=== PATIENT | female | born 1990 | race Caucasian/White ===

== ENCOUNTER 2016-09-09 06:17 | Emergency (ER) | payer BC ==
[2016-09-09 06:26] VITALS: TEMP 98.4; BMI 28.3
--- NOTE | 2016-09-09 06:40 | PDOC ---
History of Present Illness - General Chief Complaint: Nausea/Vomiting Stated Complaint: NAUSEA/VOMITING Time Seen by Provider: 09/09/16 06:34 History Source: Patient Exam Limitations: No Limitations - History of Present Illness Initial Comments: 09/09/16 06:42 This is a 25-year-old female who just arrived from a vacation in [facility] with her . Patient comes to the emergency room complaining of a migraine headache. Patient is vomiting secondary to the headache. Patient said that she has vomited her medications that she normally takes for her headache and comes in for evaluation and medication. Patient denies any fevers or chills. Patient denies any change in her vision or neurological complaints. PAST MEDICAL HISTORY: Migraine headaches PAST SURGICAL HISTORY: no significant history FAMILY HISTORY: no pertinant history SOCIAL HISTORY: Pt lives with family and is employed. MEDICATIONS: reviewed ALLERGIES: As per nursing notes Review of Systems General: No fevers or chills, no weakness, no weight loss HEENT: No change in vision. No sore throat,. No ear pain, headache CardioVascular: No chest pain or shortness of breath Respiratory:No cough, or wheezing. Gastrointestinal: no nausea, vomitting, diarrhea or constipation, No rectal bleeding Genitourinary: No dysuria, hematuria, or frequency Musculoskeletal: No joint or muscle pain or swelling Neurologic: No headache, vertigo, dizziness or loss of consciousness Psychiatric: nor depression Skin: No rashes or easy bruising Endocrine: no increased thirst or abnormal weight change Allergic: no skin or latex allergy All other systems reviewed and normal Exam: General: Well-nourished well-developed individual, holding her head in moderate distress. HEENT: Throat: Normal, tonsils normal, no erythema or exudate Neck: Supple, no meningeal signs, no lymphadenopathy Eyes::Pupils equal reactive and round, extraocular motion intact Chest: Nontender to palpation Cardiac: S1-S2 normal, regular rate and rhythm, no murmurs rubs or gallops Respiratory: Lungs clear to auscultation bilateral Abdomen: Soft, nondistended, normal bowel sounds, nontender to palpation diffusely Extremities: Warm, dry, no cyanosis, clubbing, or edema Skin: No rashes Neuro: Alert and oriented x3, nonfocal exam, grossly intact, normal gait Psych: Normal mood and affect Case discussed in detail with oncoming Emergency Physician including history, physical exam and ancillary studies. Oncoming Emergency Physician has assumed care for the patient and will complete the evaluation and treatment. Patient is aware of the plan. Pt is clinically unchanged and stable. 09/09/16 06:47 Past History - Past Medical History Allergies/Adverse Reactions: Allergies Allergy/AdvReac Type Severity Reaction Status Date / Time cefaclor [From Ceclor] Allergy Intermediate Rash Unverified 06/25/12 19:45 ciprofloxacin [From Cipro] Allergy Rash Unverified 06/25/12 19:45 nitrofurantoin Allergy Unverified 06/25/12 19:45 [From Macrobid] nitrofurantoin Allergy Unverified 06/25/12 19:45 macrocrystalline [From Macrobid] nut - unspecified [nut] Allergy Verified 08/18/15 12:09 Penicillins Allergy Rash Unverified 06/25/12 19:45 soy Allergy Verified 08/18/15 12:10 Sulfa (Sulfonamide Allergy Rash Unverified 06/25/12 19:45 Antibiotics) [Sulfa(Sulfonamide Antibiotics)] RED MEAT Allergy Uncoded 08/18/15 12:10 Home Medications: Ambulatory Orders Duloxetine HCl [Cymbalta -] 120 mg PO DAILY #30 08/09/15 Iron Ag/C/B12/Ca/Suc.acid/Stom [Multigen Caplet] 1 each PO DAILY tablet Mycophenolate Mofetil [Cellcept -] 100 mg PO BID tablet 08/09/15 Prednisone 20 mg PO ASDIR #90 08/09/15 Amitriptyline HCl [Elavil -] 10 mg PO DAILY 02/11/16 Apremilast [Otezla] 30 mg PO BID 02/11/16 Cetirizine HCl [Zyrtec -] 10 mg PO BID 02/11/16 Desloratadine [Clarinex] 2.5 mg PO ASDIR 02/11/16 Dextroamphetamine/Amphetamine [Adderall 10 mg Tablet] 10 mg PO AM 02/11/16 Dextroamphetamine/Amphetamine [Adderall 5 mg Tablet] 5 mg PO HS 02/11/16 Esomeprazole Magnesium [Nexium 24Hr] 40 mg PO BID 02/11/16 Hydromorphone HCl [Dilaudid] 2 mg PO QID 02/11/16 Levocarnitine 5 tab PO Q4HWA 02/11/16 Linaclotide [Linzess] 290 mcg PO DAILY 02/11/16 Montelukast Na [Singulair -] 10 mg PO HS 02/11/16 Mupirocin Calcium [Bactroban Nasal] 1 applic NS BID 02/11/16 Pramipexole Dihydrochloride [Mirapex -] 1 mg PO HS 02/11/16 Ubidecarenone [Co Q-10] 100 mg PO DAILY 02/11/16 Vancomycin HCl in Dextrose 5 % [Vancomycin-D5w 1.5 G/250 ml] 1.5 gm IV BID 02/10 l-Norgest/E.estradiol-E.estrad [Seasonique 0.15-0.03-0.01 Tab] 1 each PO DAILY 02/11/16 Anemia: No Asthma: Yes Cancer: No Cardiac Disorders: No CVA: No COPD: No CHF: No Dementia: No Diabetes: No GI Disorders: Yes Disorders: No HTN: No Hypercholesterolemia: No Liver Disease: No Psychiatric Problems: Yes Seizures: No Thyroid Disease: No Other medical history: EDS (AUTOIMMUNE), CARNITINE DEFICIENCY, FIBROMYALGIA, MIGRAINES - Surgical History Abdominal Surgery: No Appendectomy: No Cardiac Surgery: No Cholecystectomy: No Lung Surgery: No Neurologic Surgery: No Orthopedic Surgery: No - Psycho/Social/Smoking Cessation Hx Anxiety: Yes Suicidal Ideation: No Smoking History: Unknown if ever smoked Have you smoked in the past 12 months: No Information on smoking cessation initiated: No Hx Alcohol Use: No Drug/Substance Use Hx: No Substance Use Type: None Hx Substance Use Treatment: No *Physical Exam - Vital Signs Last Vital Signs Temp Pulse Resp BP Pulse Ox 98.4 F 104 H 18 117/79 100 09/09/16 06:24 09/09/16 06:24 09/09/16 06:24 09/09/16 06:24 09/09/16 06:24 *DC/Admit/Observation/Transfer Diagnosis at time of Disposition: Migraine headache Qualifiers: Migraine type: unspecified Status migrainosus presence: without status migrainosus Intractability: not intractable Qualified Code(s): G43.909 - Migraine, unspecified, not intractable, without status migrainosus - Discharge Dispostion Condition at time of disposition: Stable
[2016-09-09] MEDS ORDERED: KETOROLAC TROMETHAMINE 30 MG/1 ML VIAL IVPUSH ONE (06:41)
[2016-09-09] MEDS ORDERED: ONDANSETRON 4 MG/2 ML VIAL IVPB ONE (06:41)
[2016-09-09] MEDS ORDERED: METOCLOPRAMIDE HCL INJECTION 10 MG/2 ML VIAL IVPUSH ONE (06:41)
[2016-09-09] MEDS ORDERED: ONDANSETRON 4 MG/2 ML VIAL ONE (06:53)
[2016-09-09] MEDS ORDERED: KETOROLAC TROMETHAMINE 30 MG/1 ML VIAL ONE (06:53)
--- NOTE | 2016-09-09 07:28 | PDOC ---
*Physical Exam - Vital Signs Last Vital Signs Temp Pulse Resp BP Pulse Ox 98.4 F 104 H 18 117/79 100 09/09/16 06:24 09/09/16 06:24 09/09/16 06:24 09/09/16 06:24 09/09/16 06:24 ED Treatment Course - Medications Given in the ED: ED Medications Discontinued Medications Generic Name Dose Route Start Last Admin Trade Name Don PRN Reason Stop Dose Admin Ketorolac Tromethamine 30 mg 09/09/16 06:41 09/09/16 06:57 Toradol Injection - IVPUSH 09/09/16 06:42 30 mg ONCE ONE Administration Metoclopramide HCl 10 mg 09/09/16 06:41 09/09/16 06:57 Reglan Injection - IVPUSH 09/09/16 06:42 10 mg ONCE ONE Administration Ondansetron HCl 8 mg 09/09/16 06:41 09/09/16 06:58 Zofran Injection IVPB 09/09/16 06:42 8 mg ONCE ONE Administration Medical Decision Making - Medical Decision Making 09/09/16 07:31 Patient received on signout from Dr. Patel. Received IV medication for migraine , IV fluids. Awaiting [facility] to further evaluate. If wnl and if patient improved, will DC home. 09/09/16 08:49 Pt reassessed. She states she is feeling much better. Will give additional liter of saline, as patient states she still feels a little dehydrated. After that, stable for DC home. *DC/Admit/Observation/Transfer Diagnosis at time of Disposition: Migraine headache Qualifiers: Migraine type: unspecified Status migrainosus presence: without status migrainosus Intractability: not intractable Qualified Code(s): G43.909 - Migraine, unspecified, not intractable, without status migrainosus - Discharge Dispostion Disposition: HOME Condition at time of disposition: Stable Admit: No - Referrals Referrals: STAFF,NOT ON [Primary Care Provider] - - Patient Instructions - Post Discharge Activity
[2016-09-09] MEDS ORDERED: SODIUM CHLORIDE 1,000 ML IV STA (08:48)
[2016-09-09 10:10] VITALS: BP 110/68; PULSE 88
== END 2016-09-09 10:05 | disposition home or self-care (01) ==
LOC: SUPCPDRO 06:17 → FER 06:17
PROC: 3E033GC Introduction of Other Therapeutic Substance into Peripheral Vein, Percutaneous Approach (ICD-10-PCS; principal; 2016-09-09)
PROC: 3E0333Z Introduction of Anti-inflammatory into Peripheral Vein, Percutaneous Approach (ICD-10-PCS; 2016-09-09)
PROC: 3E0337Z Introduction of Electrolytic and Water Balance Substance into Peripheral Vein, Percutaneous Approach (ICD-10-PCS; 2016-09-09)
DX: G43.909 Migraine, unspecified, not intractable, without status migrainosus (principal); E71.40 Disorder of carnitine metabolism, unspecified; J45.909 Unspecified asthma, uncomplicated; F99 Mental disorder, not otherwise specified; M79.7 Fibromyalgia
CPT/HCPCS: 70450-TC; 99283-25

== ENCOUNTER 2016-11-02 15:00 | Observation (INO) | payer BC ==
[2016-11-02] MEDS ORDERED: SODIUM CHLORIDE 1,000 ML IV STA ×2 (15:13→16:29)
[2016-11-02] MEDS ORDERED: ONDANSETRON 4 MG/2 ML VIAL IVPB ONE (15:14)
--- NOTE | 2016-11-02 15:14 | PDOC ---
History of Present Illness - General History Source: Patient Exam Limitations: No Limitations - History of Present Illness Initial Comments: 11/02/16 17:22 The patient is a 25 year old female with a significant past medical history of autoimmune disorders who presents to the ED with complaints of vomiting or diarrhea. The patient reports multiple episodes of vomiting and diarrhea that started last night. She reports similar symptoms in past and states she typically gets muscle spasms and migraines associated with these symptoms. Patient reports abdominal cramping that feels like she is inflamed on the inside. She states the abdominal cramping is progressively worsening and radiated to her lower back. Denies migraines. She states she ate 2 activia yogurts and took a new probiotic th she thinks could be what triggered her symptoms. Denies hematochezia or haematemesis. Denies fevers or chills. Denies chest pain or shortness of breath. Denies any other symptoms. 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 PMD: Dr. Bradley ([id number]) <Celeste Bacon - Last Filed: 11/02/16 17:22> <Vineet Powers - Last Filed: 11/14/16 07:30> - General Chief Complaint: Vomiting/Diarrhea Stated Complaint: NAUSEA, VOMITING, DIARRHEA Time Seen by Provider: 11/02/16 15:13 Past History <Celeste Bacon - Last Filed: 11/02/16 17:22> - Past Medical History Anemia: No Asthma: Yes Cancer: No Cardiac Disorders: No CVA: No COPD: No CHF: No Dementia: No Diabetes: No GI Disorders: Yes Disorders: No HTN: No Hypercholesterolemia: No Liver Disease: No Psychiatric Problems: Yes Seizures: No Thyroid Disease: No - Surgical History Abdominal Surgery: No Appendectomy: No Cardiac Surgery: No Cholecystectomy: No Lung Surgery: No Neurologic Surgery: No Orthopedic Surgery: No - Psycho/Social/Smoking Cessation Hx Anxiety: Yes Suicidal Ideation: No Smoking History: Unknown if ever smoked Have you smoked in the past 12 months: No Hx Alcohol Use: No Drug/Substance Use Hx: No Substance Use Type: None Hx Substance Use Treatment: No <Vineet Powers - Last Filed: 11/14/16 07:30> - Past Medical History Allergies/Adverse Reactions: Allergies Allergy/AdvReac Type Severity Reaction Status Date / Time cefaclor [From Ceclor] Allergy Intermediate Rash Verified 09/09/16 08:17 ciprofloxacin [From Cipro] Allergy Rash Verified 09/09/16 08:17 nitrofurantoin Allergy Verified 09/09/16 08:17 [From Macrobid] nitrofurantoin Allergy Verified 09/09/16 08:17 macrocrystalline [From Macrobid] nut - unspecified [nut] Allergy Verified 09/09/16 08:17 Penicillins Allergy Rash Verified 09/09/16 08:17 soy Allergy Verified 09/09/16 08:17 Sulfa (Sulfonamide Allergy Rash Verified 09/09/16 08:17 Antibiotics) [Sulfa(Sulfonamide Antibiotics)] RED MEAT Allergy Uncoded 08/18/15 12:10 Home Medications: Ambulatory Orders Duloxetine HCl [Cymbalta -] 60 mg PO BID #30 08/09/15 Iron Ag/C/B12/Ca/Suc.acid/Stom [Multigen Caplet] 1 each PO DAILY tablet Prednisone 10 mg PO ASDIR #90 08/09/15 Amitriptyline HCl [Elavil -] 20 mg PO HS 02/11/16 Apremilast [Otezla] 30 mg PO BID 02/11/16 Desloratadine [Clarinex] 5 mg PO TID 02/11/16 Dextroamphetamine/Amphetamine [Adderall 5 mg Tablet] 5 mg PO BID 02/11/16 Esomeprazole Magnesium [Nexium 24Hr] 40 mg PO BID 02/11/16 Levocarnitine 5 tab PO Q4HWA 02/11/16 Montelukast Na [Singulair -] 10 mg PO HS 02/11/16 Ubidecarenone [Co Q-10] 100 mg PO DAILY 02/11/16 l-Norgest/E.estradiol-E.estrad [Seasonique 0.15-0.03-0.01 Tab] 1 each PO DAILY 02/11/16 Alpha Lipoic Acid DAILY 09/09/16 Lorazepam [Ativan] 1 mg PO TID 09/09/16 Metoprolol Tartrate 25 mg PO BID 09/09/16 Ondansetron [Zofran Odt -] 4 mg SL TID PRN #21 od.tablet 09/09/16 Metronidazole [Flagyl -] 500 mg PO Q6H #28 tablet 11/03/16 Review of Systems - Review of Systems Able to Perform ROS?: Yes Comments:: 11/02/16 17:22 CONSTITUTIONAL: No reported: Fever, Chills, Diaphoresis, Generalized Weakness, Malaise, Loss of Appetite HEENT: No reported: Rhinorrhea, Nasal Congestion, Throat Pain, Throat Swelling, Difficulty Swallowing, Mouth Swelling, Ear Pain, Eye Pain, Visual Changes CARDIOVASCULAR: No reported: Chest Pain, Syncope, Palpitations, Irregular Heart Rate, Lightheadedness, Peripheral Edema RESPIRATORY: No reported: Cough, Shortness of Breath, SOB with Exertion, Orthopnea, Wheezing , Stridor, Hemoptysis GASTROINTESTINAL: + nausea, vomiting, diarrhea No reported: Abdominal Distension, Constipation, Melena, Hematochezia GENITOURINARY: No reported: Dysuria, Frequency, Urgency, Hesitancy, Flank Pain, Genital Pain MUSCULOSKELETAL:+ abdominal spasms, back spasms No reported: Joint Swelling, Neck Pain SKIN: No reported: Rash, Itching, Pallor HEMEATOLOGIC/IMMUNOLOGIC: No reported: Easy Bleeding, Easy Bruising, Lymphadenopathy, Frequent infections ENDOCRINE: No reported: Unexplained Weight Gain, Unexplained Weight Loss, Heat Intolerance , Cold Intolerance NEUROLOGIC: No reported: Headache, Focal Weakness, Paresthesias, Vertigo, Lightheadedness, Unsteady Gait, Seizure, Mental Status Changes, Incontinence PSYCHIATRIC: No reported: Anxiety, Depression All Other Systems: Reviewed and Negative <Celeste Bacon - Last Filed: 11/02/16 17:22> *Physical Exam - Vital Signs Last Vital Signs Temp Pulse Resp BP Pulse Ox 98.9 F 120 H 16 130/81 98 11/02/16 15:13 11/02/16 15:13 11/02/16 15:13 11/02/16 15:13 11/02/16 15:13 - Physical Exam Comments: 11/02/16 17:22 GENERAL: + slight cushingoid in appearance but in no acute distress Well developed, well nourished. Awake and alert x 3. HEENT: + extremely dry mucous membranes, no sign of infection in ears or throat , Normocephalic, atraumatic. PERRLA, EOMI. No conjunctival pallor. Sclera are non- icteric. Oropharynx is clear. NECK: + Mild erythema of the anterior chest without induration or tenderness Supple. Full ROM. No JVD. Carotid pulses 2+ and symmetric, without bruits. No thyromegaly. No lymphadenopathy. CARDIOVASCULAR: Regular rate and rhythm. No murmurs, rubs, or gallops. Distal pulses are 2+ and symmetric. PULMONARY: No evidence of respiratory distress. Lungs clear to auscultation bilaterally. No wheezing, rales or rhonchi. ABDOMINAL: + mild diffuse tenderness without localization in all 4 quadrants Soft. Non-distended. No rebound or guarding. No organomegaly. Normoactive bowel sounds. MUSCULOSKELETAL Normal range of motion at all joints. No bony deformities or tenderness. No CVA tenderness. EXTREMITIES: No cyanosis. No clubbing. No edema. No calf tenderness. SKIN: Skin turgor adequate. Warm and dry. Normal capillary refill. No rashes. No jaundice. NEUROLOGICAL: Alert, awake, appropriate. Cranial nerves 2-12 intact. No deficits to light touch and temperature in face, upper extremities and lower extremities. No motor deficits in the in face, upper extremities and lower extremities. Normoreflexic in the upper and lower extremities. Normal speech. Toes are down- going bilaterally. Gait is normal without ataxia. PSYCHIATRIC: Cooperative. Good eye contact. Appropriate mood and affect. <Celeste Bacon - Last Filed: 11/02/16 17:22> ED Treatment Course - LABORATORY CBC & Chemistry Diagram: 11/02/16 15:26 11/02/16 15:13 - ADDITIONAL ORDERS Additional order review: Laboratory Results 11/02/16 11/02/16 15:15 15:13 Sodium 140 Potassium 3.5 Chloride 102 Carbon Dioxide 23 Anion Gap 15 BUN 21 H D Creatinine 1.1 D Creat Clearance w eGFR > 60 Random Glucose 132 H D Calcium 10.0 Total Bilirubin 0.5 D AST 33 D ALT 16 Alkaline Phosphatase 58 D Total Protein 7.9 Albumin 4.8 D Serum , Qual Negative 11/02/16 15:26 RBC 5.30 H MCV 88.7 MCHC 35.1 RDW 12.0 MPV 7.6 D Neutrophils % 84.7 H Lymphocytes % 6.0 L D Monocytes % 8.6 D Eosinophils % 0.4 D Basophils % 0.3 - Medications Given in the ED: ED Medications Discontinued Medications Generic Name Dose Route Start Last Admin Trade Name Don PRN Reason Stop Dose Admin Sodium Chloride 1,000 mls @ 1,000 mls/hr 11/02/16 15:13 11/02/16 15:15 Normal Saline - IV 11/02/16 16:12 1,000 mls/hr ASDIR STA Administration Lorazepam 1 mg 11/02/16 16:30 11/02/16 16:35 Ativan Injection - IVPUSH 11/02/16 16:31 1 mg ONCE ONE Administration Ondansetron HCl 4 mg 11/02/16 15:14 11/02/16 15:35 Zofran Injection IVPB 11/02/16 15:15 4 mg ONCE ONE Administration <Celeste Bacon - Last Filed: 11/02/16 17:22> - LABORATORY CBC & Chemistry Diagram: 11/03/16 09:45 11/03/16 09:45 <Vineet Powers - Last Filed: 11/14/16 07:30> Medical Decision Making - Medical Decision Making 11/14/16 07:27 Multiple prior episodes of similar symptoms, elevated white blood count and abdominal tenderness, although without localization, guarding, or rebound, difficult to exclude intraperitoneal process. CT was ordered, patient awaiting imaging. Her symptoms seem improved. She is resting comfortable and sleeping intermittently. Signed out to Dr. Wilcox pending imaging studies and further evaluation. <Vineet Powers - Last Filed: 11/14/16 07:30> *DC/Admit/Observation/Transfer - Attestations Scribe Attestion: 11/02/16 17:22 Documentation prepared by Celeste Bacon, acting as medical office supervisor for Vineet Worrell MD <Celeste Bacon - Last Filed: 11/02/16 17:22> <Vineet Powers - Last Filed: 11/14/16 07:30> Diagnosis at time of Disposition: Leukocytosis Qualifiers: Leukocytosis type: unspecified Qualified Code(s): D72.829 - Elevated white blood cell count, unspecified Abdominal pain Qualifiers: Abdominal location: generalized Qualified Code(s): R10.84 - Generalized abdominal pain - Discharge Dispostion Disposition: HOME Condition at time of disposition: Fair - Prescriptions
[2016-11-02] MEDS ORDERED: ONDANSETRON 4 MG/2 ML VIAL ONE (15:32)
[2016-11-02 16:00] LABS: BASOPHIL 0.3 % (0-2.0); EOSINOPHIL 0.4 % (0-4.5); MCH 31.2 pg (25.7-33.7); MCHC 35.1 g/dl (32.0-36.0); MEAN CELL VOLUME 88.7 fl (80-96); MEAN PLT VOLUME 7.6 fl (7.5-11.1); NEUTROPHILS 84.7 % (42.8-82.8); PLATELET COUNT 377 K/MM3 (134-434); WHITE BLOOD COUNT 18.1 K/mm3 (4.0-10.8)
[2016-11-02 16:18] LABS: ALBUMIN 4.8 g/dl (3.5-5.0); ALK PHOS 58 U/L (32-92); ANION GAP 15 (8-16); BILIRUBIN,TOTAL 0.5 mg/dl (0.2-1.0); CO2 23 mmol/L (22-28); CREATININE 1.1 mg/dl (0.6-1.3); GLUCOSE,RANDOM 132 mg/dl (74-106); SGOT/AST 33 U/L (10-42); SGPT/ALT 16 U/L (10-40); TOT PROT 7.9 g/dl (6.4-8.3)
[2016-11-02] MEDS ORDERED: LORAZEPAM CARPU-JECT 2 MG/ML DISP.SYRIN IVPUSH ONE (16:30)
[2016-11-02] MEDS ORDERED: LORAZEPAM CARPU-JECT 2 MG/ML DISP.SYRIN ONE (16:32)
[2016-11-02] MEDS ORDERED: ACETAMINOPHEN 1000 MG/100 ML VIAL (NON FORMULARY) IVPB ONE (19:13)
[2016-11-02] MEDS ORDERED: ACETAMINOPHEN INJECTION 100 ML IVPB ONE (19:13)
--- NOTE | 2016-11-02 19:15 | PDOC ---
*Physical Exam - Vital Signs Last Vital Signs Temp Pulse Resp BP Pulse Ox 98.9 F 118 H 17 130/81 98 11/02/16 15:13 11/02/16 17:01 11/02/16 17:01 11/02/16 15:13 11/02/16 17:01 ED Treatment Course - LABORATORY CBC & Chemistry Diagram: 11/02/16 15:26 11/02/16 15:13 - ADDITIONAL ORDERS Additional order review: Laboratory Results 11/02/16 11/02/16 15:15 15:13 Sodium 140 Potassium 3.5 Chloride 102 Carbon Dioxide 23 Anion Gap 15 BUN 21 H D Creatinine 1.1 D Creat Clearance w eGFR > 60 Random Glucose 132 H D Calcium 10.0 Total Bilirubin 0.5 D AST 33 D ALT 16 Alkaline Phosphatase 58 D Total Protein 7.9 Albumin 4.8 D Serum , Qual Negative 11/02/16 15:26 RBC 5.30 H MCV 88.7 MCHC 35.1 RDW 12.0 MPV 7.6 D Neutrophils % 84.7 H Lymphocytes % 6.0 L D Monocytes % 8.6 D Eosinophils % 0.4 D Basophils % 0.3 - Medications Given in the ED: ED Medications Discontinued Medications Generic Name Dose Route Start Last Admin Trade Name Freq PRN Reason Stop Dose Admin Sodium Chloride 1,000 mls @ 1,000 mls/hr 11/02/16 15:13 11/02/16 15:15 Normal Saline - IV 11/02/16 16:12 1,000 mls/hr ASDIR STA Administration Sodium Chloride 1,000 mls @ 1,000 mls/hr 11/02/16 16:29 11/02/16 16:30 Normal Saline - IV 11/02/16 17:28 1,000 mls/hr ASDIR STA Administration Lorazepam 1 mg 11/02/16 16:30 11/02/16 16:35 Ativan Injection - IVPUSH 11/02/16 16:31 1 mg ONCE ONE Administration Ondansetron HCl 4 mg 11/02/16 15:14 11/02/16 15:35 Zofran Injection IVPB 11/02/16 15:15 4 mg ONCE ONE Administration Progress Note - Progress Note Progress Note: Care of this patient was transferred to [place] from Dr. Doe at 1900 hrs. Patient is a 25-year-old female with an extensive medical history of comes in complaining of severe abdominal pain. Patient has a markedly elevated white count of 18,000 and has a CAT scan of her abdomen and pelvis pending to rule out intra-abdominal pathology and possible causes of the markedly be elevated white count. Patient was afebrile but clinically dehydrated secondary to vomiting. Patient is also being hydrated and I just wrote her for some IV Tylenol. Patient's CT scan shows no acute pathology but does show multiple fluid-filled loops of bowel. Most likely secondary to a diarrheal illness. I discussed with patient's primary care doctor who does not come to this facility and he suggests that says she is ALLERGIC to so many antibiotics that Flagyl would be about the only choice that we can give her some patient will be started on some Flagyl 250 mg every 8 hours. Patient will be admitted to the inpatient service and he suggested that we put in for a surgical consult for the morning as her white count is so high and the source does appear to be her belly just to rule out any additional complications or concerns. *DC/Admit/Observation/Transfer Diagnosis at time of Disposition: Leukocytosis Qualifiers: Leukocytosis type: unspecified Qualified Code(s): D72.829 - Elevated white blood cell count, unspecified Abdominal pain Qualifiers: Abdominal location: generalized Qualified Code(s): R10.84 - Generalized abdominal pain - Discharge Dispostion Condition at time of disposition: Fair Admit: Yes - Referrals Referrals: Abdoul Bradley MD [Primary Care Provider] - - Patient Instructions - Post Discharge Activity
[2016-11-02 19:21] LABS: PH,URINE 5.5 (4.5-8); URINE BILIRUBIN Negative (NEGATIVE); URINE GLUCOSE (UA) Negative (NEGATIVE); URINE KETONE Trace (NEGATIVE); URINE LEUK ESTERASE Negative (NEGATIVE); URINE NITRITE Negative (NEGATIVE); URINE UROBILINOGEN 0.2 E.U/dl (0.2-1.0)
[2016-11-02 19:31] LABS: URINE BLOOD 3+ (NEGATIVE); URINE COLOR YELLOW; URINE PROTEIN 1+ (NEGATIVE)
[2016-11-02 19:32] LABS: URINE APPEARANCE CLOUDY
[2016-11-02 19:33] LABS: URINE BACTERIA FEW /hpf (NEGATIVE)
[2016-11-02] MEDS ORDERED: METRONIDAZOLE PREMIXED IVPB 50 ML IVPB ONE (21:17)
[2016-11-02] MEDS ORDERED: METRONIDAZOLE 500 MG PREMIXED 100 ML IVPB ONE (21:43)
[2016-11-03 00:52] VITALS: BMI 27.8
[2016-11-03] MEDS ORDERED: SODIUM CHLORIDE 1,000 ML IV SCH (01:00)
[2016-11-03] MEDS ORDERED: AMPHETAMINE PO PRN (01:04)
[2016-11-03] MEDS ORDERED: DEXTROAMPHETAMINE PO PRN (01:04)
[2016-11-03] MEDS ORDERED: [UNRECOGNIZED DRUG - OTHER] PO PRN (01:04)
--- NOTE | 2016-11-03 01:33 | HP ---
CHIEF COMPLAINT: vomiting and diarrhea PCP: Dr. Bradley ([id number]) HISTORY OF PRESENT ILLNESS: This is a 25 year old female with a past medical history of Ehler Danlos Syndrome, carnitine deficiency (primary), asthma who presented to the ED with vomiting and diarrhea since late last night. Pt also has associated generalized body muscle spasms. Pt states that she has had this before and believes she may have triggered it with a new probiotic as pt has many food allergies. Upon exam , pt no longer with vomiting but nausea persists. ER course was notable for: (1) WBC 18.1 (2) Given flagyl 250mg IVPB with some flushing after (3) CT abd/pel with fluid filled loops small and large bowel indicative of a diarrheal illness Recent Travel: pt denies PAST MEDICAL HISTORY: Ehler Danlos syndrome carnitine deficiency asthma staph infections requiring home IV antibiotics Social History: Smoking: pt denies Alcohol: pt denies Drugs: medical marijuana, vapor, oil Allergies cefaclor [From Ceclor] Allergy (Intermediate, Verified 09/09/16 08:17) Rash ciprofloxacin [From Cipro] Allergy (Verified 09/09/16 08:17) Rash nitrofurantoin [From Macrobid] Allergy (Verified 09/09/16 08:17) nitrofurantoin macrocrystalline [From Macrobid] Allergy (Verified 09/09/16 08:17 ) nut - unspecified [nut] Allergy (Verified 09/09/16 08:17) Penicillins Allergy (Verified 09/09/16 08:17) Rash soy Allergy (Verified 09/09/16 08:17) Sulfa (Sulfonamide Antibiotics) [Sulfa(Sulfonamide Antibiotics)] Allergy ( Verified 09/09/16 08:17) Rash RED MEAT Allergy (Uncoded 08/18/15 12:10) HOME MEDICATIONS: 3 Medication Instructions Recorded Duloxetine HCl [Cymbalta -] 60 mg PO BID #30 08/09/15 Iron Ag/C/B12/Ca/Suc.acid/Stom 1 each PO DAILY tablet 08/09/15 [Multigen Caplet] Prednisone 10 mg PO ASDIR #90 08/09/15 Amitriptyline HCl [Elavil -] 20 mg PO DAILY 02/11/16 Apremilast [Otezla] 30 mg PO BID 02/11/16 Desloratadine [Clarinex] 5 mg PO TID 02/11/16 Dextroamphetamine/Amphetamine 5 mg PO BID 02/11/16 [Adderall 5 mg Tablet] Esomeprazole Magnesium [Nexium 40 mg PO BID 02/11/16 24Hr] Levocarnitine 5 tab PO Q4HWA 02/11/16 Montelukast Na [Singulair -] 10 mg PO HS 02/11/16 Ubidecarenone [Co Q-10] 100 mg PO DAILY 02/11/16 l-Norgest/E.estradiol-E.estrad 1 each PO DAILY 02/11/16 [Seasonique 0.15-0.03-0.01 Tab] Alpha Lipoic Acid DAILY 09/09/16 Lorazepam [Ativan] 1 mg PO TID 09/09/16 Metoprolol Tartrate 25 mg PO BID 09/09/16 Ondansetron [Zofran Odt -] 4 mg SL TID PRN #21 od.tablet 09/09/16 Vyvanse 10mg daily REVIEW OF SYSTEMS CONSTITUTIONAL: Absent: fever, chills, diaphoresis, generalized weakness, malaise, loss of appetite, weight change HEENT: Absent: rhinorrhea, nasal congestion, throat pain, throat swelling, difficulty swallowing, mouth swelling, ear pain, eye pain, visual changes CARDIOVASCULAR: Absent: chest pain, syncope, palpitations, irregular heart rate, lightheadedness , peripheral edema RESPIRATORY: Absent: cough, shortness of breath, dyspnea with exertion, orthopnea, wheezing, stridor, hemoptysis GASTROINTESTINAL: Present: abdominal pain, vomiting, diarrhea Absent: abdominal distension, nausea, constipation, melena, hematochezia GENITOURINARY: Absent: dysuria, frequency, urgency, hesitancy, hematuria, flank pain, genital pain MUSCULOSKELETAL: Present: myalgia, muscle spasms Absent: arthralgia, joint swelling, back pain, neck pain SKIN: Absent: rash, itching, pallor HEMATOLOGIC/IMMUNOLOGIC: Absent: easy bleeding, easy bruising, lymphadenopathy, frequent infections ENDOCRINE: Absent: unexplained weight gain, unexplained weight loss, heat intolerance, cold intolerance NEUROLOGIC: Absent: headache, focal weakness or paresthesias, dizziness, unsteady gait, seizure, mental status changes, bladder or bowel incontinence PSYCHIATRIC: Absent: anxiety, depression, suicidal or homicidal ideation, hallucinations. PHYSICAL EXAMINATION Vital Signs - 24 hr 3 11/02/16 11/02/16 11/02/16 11/03/16 15:13 17:01 23:59 00:30 Temperature 98.9 F 98.7 F 98.7 F Pulse Rate 120 H 93 H 93 H Pulse Rate [ 118 H Right Radial] Respiratory 16 17 18 18 Rate Blood Pressure 130/81 122/71 122/71 O2 Sat by Pulse 98 98 99 Oximetry (%) GENERAL: Awake, alert, and fully oriented, in no acute distress. HEAD: Normal with no signs of trauma. EYES: Pupils equal, round and reactive to light, extraocular movements intact, sclera anicteric, conjunctiva clear. No lid lag. EARS, NOSE, THROAT: Ears normal, nares patent, oropharynx clear without exudates. Moist mucous membranes. NECK: Normal range of motion, supple without lymphadenopathy, JVD, or masses. LUNGS: Breath sounds equal, clear to auscultation bilaterally. No wheezes, and no crackles. No accessory muscle use. HEART: Regular rate and rhythm, normal S1 and S2 without murmur, rub or gallop. ABDOMEN: Soft, not distended, normoactive bowel sounds, no rebound, no masses. No hepatomegaly or splenomegaly. + tender to palpation all 4 quadrants, but especially LLQ and epigastric area MUSCULOSKELETAL: Normal range of motion at all joints. No bony deformities or tenderness. No CVA tenderness. UPPER EXTREMITIES: 2+ pulses, warm, well-perfused. No cyanosis. No clubbing. No peripheral edema. LOWER EXTREMITIES: 2+ pulses, warm, well-perfused. No calf tenderness. No peripheral edema. NEUROLOGICAL: Cranial nerves II-XII intact. Normal speech. Normal gait. PSYCHIATRIC: Cooperative. Good eye contact. Appropriate mood and affect. SKIN: Warm, dry, normal turgor, no rashes or lesions noted, normal capillary refill. Laboratory Results - last 24 hr 3 11/02/16 11/02/16 11/02/16 15:13 15:15 15:26 WBC 18.1 H D RBC 5.30 H Hgb 16.5 H D Hct 47.1 H D MCV 88.7 MCHC 35.1 RDW 12.0 Plt Count 377 D MPV 7.6 D Neutrophils % 84.7 H Lymphocytes % 6.0 L D Monocytes % 8.6 D Eosinophils % 0.4 D Basophils % 0.3 Sodium 140 Potassium 3.5 Chloride 102 Carbon Dioxide 23 Anion Gap 15 BUN 21 H D Creatinine 1.1 D Creat Clearance w eGFR > 60 Random Glucose 132 H D Calcium 10.0 Total Bilirubin 0.5 D AST 33 D ALT 16 Alkaline Phosphatase 58 D Total Protein 7.9 Albumin 4.8 D Serum , Qual Negative Urine Color Urine Appearance Urine pH Ur Specific [place] Urine Protein Urine Glucose (UA) Urine Ketones Urine Blood Urine Nitrite Urine Bilirubin Urine Urobilinogen Ur Leukocyte Esterase Urine RBC Urine WBC Ur Epithelial Cells Urine Bacteria Urine HCG, Qual 3 Urine Color Yellow 11/02/16 19:00 Urine Appearance Cloudy 11/02/16 19:00 Urine pH 5.5 (4.5-8) 11/02/16 19:00 Ur Specific [place] 1.015 (1.005-1.025) 11/02/16 19:00 Urine Protein 1+ (NEGATIVE) H 11/02/16 19:00 Urine Glucose (UA) Negative (NEGATIVE) 11/02/16 19:00 Urine Ketones Trace (NEGATIVE) 11/02/16 19:00 Urine Blood 3+ (NEGATIVE) H 11/02/16 19:00 Urine Nitrite Negative (NEGATIVE) 11/02/16 19:00 Urine Bilirubin Negative (NEGATIVE) 11/02/16 19:00 Ur Leukocyte Esterase Negative (NEGATIVE) 11/02/16 19:00 Urine RBC 10-15 /hpf (0-3) 11/02/16 19:00 Urine WBC 2-5 (3-5) 11/02/16 19:00 Ur Epithelial Cells Few /HPF 11/02/16 19:00 Urine Bacteria Few /hpf (NEGATIVE) 11/02/16 19:00 CT/ABDOMEN PELVIS CT WITH CONTR HISTORY PROVIDED: Abdominal pain. Sequential axial images were obtained from the domes of the diaphragms through the symphysis pubis following the administration of both oral and intravenous contrast material. The liver, spleen, pancreas, adrenal glands and kidneys demonstrate no significant abnormalities. There is no evidence of intra-abdominal or retroperitoneal lymphadenopathy or fluid collections. There are fluid-filled loops of large and small old diffusely. This suggests a diarrheal illness. Clinical correlation is advised. There is no evidence of pneumoperitoneum, bowel obstruction or intra-abdominal abscess. There is no CT evidence of acute appendicitis or diverticulitis. Examination of the pelvis demonstrates no evidence of pelvic masses, fluid collections or lymphadenopathy. There is no evidence of acute bony abnormalities. IMPRESSION: Fluid-filled loops of large and small bowel suggesting diarrheal illness. Clinical correlation advised. Please see above discussion. ASSESSMENT/PLAN: 25yF with PMH [place] Dennislos sx, unknown type, primary carnitine deficiency, asthma presented to the ED with uncontrolled nausea and vomiting. She has been admitted for observation. Sepsis secondary to gastroenteritis - as evidenced by elevated WBC and HR - cont flagyl 250mg IVPB Q8H with 25mg benadryl IV - NS @ 125cc/hr - trial of clear liquid diet in am. - if no improvement, would obtain surgical consult, consider sono to r/o GB pathology given epigastric tenderness Ehler Danlos syndrome - cont home medications as they have significantly improved her QOL and functional status - pt takes adderall and vyvanse for excessive somnolence related to medical conditions and treatment Carnitine deficiency - cont home levocarnitine Asthma - cont singulair and clarinex GERD - home nexium changed to formulary protonix, if vomiting recurs, start IV DVT PPX - deferred given expected LOS <48h FEN - NS @ 125cc/hr - repeat BMP in am with mag and phos - trial of clear liquid diet in am Dispo: Pt requires inpatient observation for management of her emergent condition. Visit type - Emergency Visit Emergency Visit: Yes ED Registration Date: 11/02/16 Care time: The patient presented to the Emergency Department on the above date and was hospitalized for further evaluation of their emergent condition. - New Patient This patient is new to me today: Yes Date on this admission: 11/03/16 - Critical Care Critical Care patient: No
[2016-11-03] MEDS: LORAZEPAM CARPU-JECT 2 MG/ML DISP.SYRIN IVPUSH PRN ×2 (02:37→14:18)
[2016-11-03] MEDS: ACETAMINOPHEN 1000 MG/100 ML VIAL (NON FORMULARY) IVPB PRN ×2 (02:37→09:24)
[2016-11-03] MEDS ORDERED: LEVOCARNITINE PO SCH (06:00)
[2016-11-03] MEDS ORDERED: METRONIDAZOLE PREMIXED IVPB 50 ML IVPB SCH (06:00)
[2016-11-03 06:24] VITALS: BP 114/67; PULSE 86; TEMP 98.2
[2016-11-03] MEDS ORDERED: DESLORATADINE 5 MG PO SCH (10:00)
[2016-11-03] MEDS ORDERED: predniSONE 5 MG TABLET (UD) PO SCH (10:00)
[2016-11-03] MEDS ORDERED: [UNRECOGNIZED DRUG - MIXTURE] PO SCH (10:00)
[2016-11-03] MEDS ORDERED: PATIENT'S OWN MEDICATION (NON-FORMULARY) (Apremilast [Otezla] 30 MG) PO SCH (10:00)
[2016-11-03] MEDS ORDERED: PANTOPRAZOLE 40 MG TABLET (FP) PO SCH (10:00)
[2016-11-03] MEDS ORDERED: PATIENT'S OWN MEDICATION (NON-FORMULARY) (Ubidecarenone [Co Q-10] 100 MG) PO SCH (10:00)
[2016-11-03] MEDS ORDERED: DULoxetine HCL 30 MG CAPSULE.DR (FP) PO SCH (10:00)
[2016-11-03] MEDS ORDERED: ALPHA LIPOIC ACID PO SCH (10:00)
[2016-11-03] MEDS ORDERED: [UNRECOGNIZED DRUG - OTHER] PO SCH (10:00)
[2016-11-03] MEDS ORDERED: METOPROLOL TARTRATE 25 MG TABLET (FP) PO SCH (10:00)
[2016-11-03] MEDS ORDERED: AMITRIPTYLINE HCL 10 MG TABLET (FP) PO SCH (10:00)
[2016-11-03] MEDS ORDERED: NORGEST PO SCH (10:00)
[2016-11-03] MEDS ORDERED: E ESTRADIOL E ESTRAD PO SCH (10:00)
[2016-11-03 10:18] LABS: ALK PHOS 37 U/L (32-92); ANION GAP 5 (8-16); BILIRUBIN,TOTAL 0.3 mg/dl (0.2-1.0); CALCIUM 7.7 mg/dl (8.4-10.2); CO2 20 mmol/L (22-28); CREATININE 0.6 mg/dl (0.6-1.3); GLUCOSE,RANDOM 106 mg/dl (74-106); MAGNESIUM 1.7 mg/dL (1.8-2.4); SGPT/ALT 10 U/L (10-40)
[2016-11-03 10:28] LABS: BASOPHIL 0.5 % (0-2.0); EOSINOPHIL 2.5 % (0-4.5); MCH 29.8 pg (25.7-33.7); MEAN CELL VOLUME 90.4 fl (80-96); MEAN PLT VOLUME 7.2 fl (7.5-11.1); NEUTROPHILS 72.3 % (42.8-82.8); PLATELET COUNT 281 K/MM3 (134-434); RDW 12.1 % (11.6-15.6); WHITE BLOOD COUNT 10.7 K/mm3 (4.0-10.8)
[2016-11-03 10:29] LABS: SGOT/AST 21 U/L (10-42)
[2016-11-03] MEDS ORDERED: POTASSIUM CHLORIDE TABS 20 MEQ TABLET.ER (FP) PO ONE (12:23)
[2016-11-03] MEDS ORDERED: MAGNESIUM OXIDE 400 MG TABLET (FP) PO ONE (12:23)
--- NOTE | 2016-11-03 12:30 | HP ---
CHIEF COMPLAINT: PCP: HISTORY OF PRESENT ILLNESS: ER course was notable for: (1) (2) (3) Recent Travel: PAST MEDICAL HISTORY: PAST SURGICAL HISTORY: Social History: Smoking: Alcohol: Drugs: Family History: Allergies cefaclor [From Ceclor] Allergy (Intermediate, Verified 09/09/16 08:17) Rash ciprofloxacin [From Cipro] Allergy (Verified 09/09/16 08:17) Rash nitrofurantoin [From Macrobid] Allergy (Verified 09/09/16 08:17) nitrofurantoin macrocrystalline [From Macrobid] Allergy (Verified 09/09/16 08:17 ) nut - unspecified [nut] Allergy (Verified 09/09/16 08:17) Penicillins Allergy (Verified 09/09/16 08:17) Rash soy Allergy (Verified 09/09/16 08:17) Sulfa (Sulfonamide Antibiotics) [Sulfa(Sulfonamide Antibiotics)] Allergy ( Verified 09/09/16 08:17) Rash RED MEAT Allergy (Uncoded 08/18/15 12:10) HOME MEDICATIONS: Home Medications Medication Instructions Recorded Duloxetine HCl [Cymbalta -] 60 mg PO BID #30 08/09/15 Iron Ag/C/B12/Ca/Suc.acid/Stom 1 each PO DAILY tablet 08/09/15 [Multigen Caplet] Prednisone 10 mg PO ASDIR #90 08/09/15 Amitriptyline HCl [Elavil -] 20 mg PO HS 02/11/16 Apremilast [Otezla] 30 mg PO BID 02/11/16 Desloratadine [Clarinex] 5 mg PO TID 02/11/16 Dextroamphetamine/Amphetamine 5 mg PO BID 02/11/16 [Adderall 5 mg Tablet] Esomeprazole Magnesium [Nexium 40 mg PO BID 02/11/16 24Hr] Levocarnitine 5 tab PO Q4HWA 02/11/16 Montelukast Na [Singulair -] 10 mg PO HS 02/11/16 Ubidecarenone [Co Q-10] 100 mg PO DAILY 02/11/16 l-Norgest/E.estradiol-E.estrad 1 each PO DAILY 02/11/16 [Seasonique 0.15-0.03-0.01 Tab] Alpha Lipoic Acid DAILY 09/09/16 Lorazepam [Ativan] 1 mg PO TID 09/09/16 Metoprolol Tartrate 25 mg PO BID 09/09/16 Ondansetron [Zofran Odt -] 4 mg SL TID PRN #21 od.tablet 09/09/16 REVIEW OF SYSTEMS CONSTITUTIONAL: Absent: fever, chills, diaphoresis, generalized weakness, malaise, loss of appetite, weight change HEENT: Absent: rhinorrhea, nasal congestion, throat pain, throat swelling, difficulty swallowing, mouth swelling, ear pain, eye pain, visual changes CARDIOVASCULAR: Absent: chest pain, syncope, palpitations, irregular heart rate, lightheadedness , peripheral edema RESPIRATORY: Absent: cough, shortness of breath, dyspnea with exertion, orthopnea, wheezing, stridor, hemoptysis GASTROINTESTINAL: Absent: abdominal pain, abdominal distension, nausea, vomiting, diarrhea, constipation, melena, hematochezia GENITOURINARY: Absent: dysuria, frequency, urgency, hesitancy, hematuria, flank pain, genital pain MUSCULOSKELETAL: Absent: myalgia, arthralgia, joint swelling, back pain, neck pain SKIN: Absent: rash, itching, pallor HEMATOLOGIC/IMMUNOLOGIC: Absent: easy bleeding, easy bruising, lymphadenopathy, frequent infections ENDOCRINE: Absent: unexplained weight gain, unexplained weight loss, heat intolerance, cold intolerance NEUROLOGIC: Absent: headache, focal weakness or paresthesias, dizziness, unsteady gait, seizure, mental status changes, bladder or bowel incontinence PSYCHIATRIC: Absent: anxiety, depression, suicidal or homicidal ideation, hallucinations. PHYSICAL EXAMINATION Vital Signs - 24 hr 11/02/16 11/03/16 11/03/16 23:59 00:30 06:00 Temperature 98.7 F 98.7 F 98.2 F Pulse Rate 93 H 93 H 86 Respiratory 18 18 18 Rate Blood Pressure 122/71 122/71 114/67 O2 Sat by Pulse 99 Oximetry (%) GENERAL: Awake, alert, and fully oriented, in no acute distress. HEAD: Normal with no signs of trauma. EYES: Pupils equal, round and reactive to light, extraocular movements intact, sclera anicteric, conjunctiva clear. No lid lag. EARS, NOSE, THROAT: Ears normal, nares patent, oropharynx clear without exudates. Moist mucous membranes. NECK: Normal range of motion, supple without lymphadenopathy, JVD, or masses. LUNGS: Breath sounds equal, clear to auscultation bilaterally. No wheezes, and no crackles. No accessory muscle use. HEART: Regular rate and rhythm, normal S1 and S2 without murmur, rub or gallop. ABDOMEN: Soft, nontender, not distended, normoactive bowel sounds, no guarding, no rebound, no masses. No hepatomegaly or splenomegaly. MUSCULOSKELETAL: Normal range of motion at all joints. No bony deformities or tenderness. No CVA tenderness. UPPER EXTREMITIES: 2+ pulses, warm, well-perfused. No cyanosis. No clubbing. No peripheral edema. LOWER EXTREMITIES: 2+ pulses, warm, well-perfused. No calf tenderness. No peripheral edema. NEUROLOGICAL: Cranial nerves II-XII intact. Normal speech. Normal gait. PSYCHIATRIC: Cooperative. Good eye contact. Appropriate mood and affect. SKIN: Warm, dry, normal turgor, no rashes or lesions noted, normal capillary refill. Laboratory Results - last 24 hr 11/03/16 11/03/16 11/03/16 09:45 09:45 09:45 WBC 10.7 D RBC 3.75 D Hgb 11.2 D Hct 33.9 D MCV 90.4 MCHC 33.0 RDW 12.1 Plt Count 281 D MPV 7.2 L Neutrophils % 72.3 Lymphocytes % 20.1 D Monocytes % 4.6 Eosinophils % 2.5 D Basophils % 0.5 Sodium 133 L Potassium 3.4 L Chloride 108 H Carbon Dioxide 20 L Anion Gap 5 L BUN < 5 L D Creatinine 0.6 D Creat Clearance w eGFR > 60 Random Glucose 106 Calcium 7.7 L D Magnesium 1.7 L Total Bilirubin 0.3 D AST 21 D ALT 10 D Alkaline Phosphatase 37 D Total Protein 5.0 L D Albumin 3.0 L D Lipase 21 L ASSESSMENT/PLAN:
--- NOTE | 2016-11-03 12:46 | DS ---
Physical Exam: SUBJECTIVE: Patient seen and examined. Still with some "green" diarrhea, but reports that it has diminished. Abdominal pain has resolved and she is eating a full diet. OBJECTIVE: WBC has trended down from 18.1 to 10.7. Vital Signs Period Temp Pulse Resp BP Sys/Berkowitz Pulse Ox Last 24 Hr 98.2 F-98.7 F 86-93 18-18 114-122/67-71 99 PHYSICAL EXAM GENERAL: The patient is awake, alert, and fully oriented, in no acute distress. HEAD: Normal with no signs of trauma. EYES: PERRL, extraocular movements intact, sclera anicteric, conjunctiva clear. ENT: Ears normal, nares patent, oropharynx clear without exudates, moist mucous membranes. NECK: Trachea midline, full range of motion, supple. LUNGS: Breath sounds equal, clear to auscultation bilaterally, no wheezes, no crackles, no accessory muscle use. HEART: Regular rate and rhythm, S1, S2 without murmur, rub or gallop. ABDOMEN: Soft, nontender, mild tenderness to deep palpation in epigastrium, normoactive bowel sounds, no guarding, no rebound, no hepatosplenomegaly, no masses. EXTREMITIES: 2+ pulses, warm, well-perfused, no edema. NEUROLOGICAL: Cranial nerves II through XII grossly intact. Normal speech, gait not observed. PSYCH: Normal mood, normal affect. SKIN: Warm, dry, normal turgor, no rashes or lesions noted. LABS Laboratory Results - last 24 hr 11/03/16 11/03/16 11/03/16 09:45 09:45 09:45 WBC 10.7 D RBC 3.75 D Hgb 11.2 D Hct 33.9 D MCV 90.4 MCHC 33.0 RDW 12.1 Plt Count 281 D MPV 7.2 L Neutrophils % 72.3 Lymphocytes % 20.1 D Monocytes % 4.6 Eosinophils % 2.5 D Basophils % 0.5 Sodium 133 L Potassium 3.4 L Chloride 108 H Carbon Dioxide 20 L Anion Gap 5 L BUN < 5 L D Creatinine 0.6 D Creat Clearance w eGFR > 60 Random Glucose 106 Calcium 7.7 L D Magnesium 1.7 L Total Bilirubin 0.3 D AST 21 D ALT 10 D Alkaline Phosphatase 37 D Total Protein 5.0 L D Albumin 3.0 L D Lipase 21 L HOSPITAL COURSE: This is a 25 year old female with a history of Ehler Danlos Syndrome, carnitine deficiency (primary), and asthma who presented to the ED yesterday with diarrhea and abdominal pain. CTAP showed fluid-filled loops of bowel in the large and small intestine, consistent with diarrheal illness. Labs were notable for WBC of 18.1. The patient has many drug allergies, and was started on Flagyl with IV Benadryl. This morning, WBC has trended down. She has some mild hypomagnesemia and hypokalemia, which we will supplement orally. The patient's pain has improved and she is tolerating PO well. Given that she has recently been on antibiotics, will send c diff. Plan is to continue Flagyl at home. Patient will follow up for c diff results. Return precautions reviewed. Date of Admission:11/02/16 Date of Discharge: 11/03/16 Minutes to complete discharge: 35 Discharge Summary Reason For Visit: ABDOMINAL PAIN/LEUKOCYTOSIS Current Active Problems Diarrhea (Acute) Condition: Fair - Instructions Diet, Activity, Other Instructions: -Rest and stay well-hydrated -Take Flagyl with Benadryl as prescribed -Call [phone] for the results of your c diff testing -Follow up with your primary care doctor next weke -Return here for worsening pain, inability to keep down fluids, fevers, or any other concerning symptoms Referrals: Abdoul Bradley MD [Primary Care Provider] - - Home Medications Comprehensive Discharge Medication List: Ambulatory Orders Duloxetine HCl [Cymbalta -] 60 mg PO BID #30 08/09/15 Iron Ag/C/B12/Ca/Suc.acid/Stom [Multigen Caplet] 1 each PO DAILY tablet Prednisone 10 mg PO ASDIR #90 08/09/15 Amitriptyline HCl [Elavil -] 20 mg PO HS 02/11/16 Apremilast [Otezla] 30 mg PO BID 02/11/16 Desloratadine [Clarinex] 5 mg PO TID 02/11/16 Dextroamphetamine/Amphetamine [Adderall 5 mg Tablet] 5 mg PO BID 02/11/16 Esomeprazole Magnesium [Nexium 24Hr] 40 mg PO BID 02/11/16 Levocarnitine 5 tab PO Q4HWA 02/11/16 Montelukast Na [Singulair -] 10 mg PO HS 02/11/16 Ubidecarenone [Co Q-10] 100 mg PO DAILY 02/11/16 l-Norgest/E.estradiol-E.estrad [Seasonique 0.15-0.03-0.01 Tab] 1 each PO DAILY 02/11/16 Alpha Lipoic Acid DAILY 09/09/16 Lorazepam [Ativan] 1 mg PO TID 09/09/16 Metoprolol Tartrate 25 mg PO BID 09/09/16 Ondansetron [Zofran Odt -] 4 mg SL TID PRN #21 od.tablet 09/09/16 Metronidazole [Flagyl -] 500 mg PO Q6H #28 tablet 11/03/16 This patient is new to me today: Yes Date on this admission: 11/03/16 Emergency Visit: Yes ED Registration Date: 11/02/16 Care time: The patient presented to the Emergency Department on the above date and was hospitalized for further evaluation of their emergent condition. Critical Care patient: No - Discharge Referral Referred to [facility] No
[2016-11-03] MEDS ORDERED: ONDANSETRON 4 MG/2 ML VIAL IVPUSH ONE (13:42)
[2016-11-03] MEDS ORDERED: LORAZEPAM CARPU-JECT 2 MG/ML DISP.SYRIN IM ONE (14:10)
[2016-11-03] MEDS ORDERED: ONDANSETRON 4 MG/2 ML VIAL IM ONE (14:12)
[2016-11-03] MEDS ORDERED: MONTELUKAST NA 10 MG TABLET PO SCH (22:00)
== END 2016-11-03 15:45 | disposition home or self-care (01) ==
LOC: FER 15:00 → FM/S 22:56
PROVIDERS: ADMIT Internal Medicine; ATTEND Registered Nurse Emergency
PROC: 3E03329 Introduction of Other Anti-infective into Peripheral Vein, Percutaneous Approach (ICD-10-PCS; principal; 2016-11-02)
PROC: 3E0337Z Introduction of Electrolytic and Water Balance Substance into Peripheral Vein, Percutaneous Approach (ICD-10-PCS; 2016-11-02)
PROC: 3E033GC Introduction of Other Therapeutic Substance into Peripheral Vein, Percutaneous Approach (ICD-10-PCS; 2016-11-02)
DX: D72.829 Elevated white blood cell count, unspecified (principal); R10.84 Generalized abdominal pain; J45.909 Unspecified asthma, uncomplicated; D89.9 Disorder involving the immune mechanism, unspecified; E71.41 Primary carnitine deficiency; K21.9 Gastro-esophageal reflux disease without esophagitis
CPT/HCPCS: 36415; 74177-TC; 80053; 81003; 81015; 83690; 83735; 84703; 85025; 87086; 87324; 87449; 99284-25; G0378

== ENCOUNTER 2017-01-07 20:38 | Emergency (ER) | payer BC ==
[2017-01-07 20:51] VITALS: BP 118/79; PULSE 80; TEMP 98.4; BMI 26.4
--- NOTE | 2017-01-07 21:11 | PDOC ---
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 The patient states that due to her EDS she often gets open sores all over her which result in staph infections. The patient was able to get a Z pack and doxycycline from her PCP for the infection. In addition, the patient was also experiencing muscle spasms including stomach spasms today. As a result, the patient went to her PCP today in which she was instructed to go to the ED for IV fluids. The patient denies any recent illness, fevers, or chills. PCP: Dr. aRhman PAST MEDICAL HISTORY: see above PAST SURGICAL HISTORY: no significant history FAMILY HISTORY: no pertinent history SOCIAL HISTORY: Pt lives with family and is employed. MEDICATIONS: reviewed ALLERGIES: As per nursing notes General: No fevers or chills, no weakness, no weight loss HEENT: No change in vision. No sore throat,. No ear pain CardioVascular: No chest pain or shortness of breath Respiratory:No cough, or wheezing. Gastrointestinal: Present: nausea, vomiting, diarrhea no constipation, No rectal bleeding Genitourinary: No dysuria, hematuria, or frequency Musculoskeletal: No joint or muscle pain or swelling Neurologic: Present: muscle spasms No headache, vertigo, dizziness or loss of consciousness Psychiatric: nor depression Skin: Present: skin lesions No rashes or easy bruising Endocrine: no increased thirst or abnormal weight change Allergic: no skin or latex allergy All other systems reviewed and normal General: Well-nourished well-developed individual, no acute distress HEENT: Throat: Normal, tonsils normal, no erythema or exudate Neck: Supple, no meningeal signs, no lymphadenopathy Eyes::Pupils equal reactive and round, extraocular motion intact Chest: Nontender to palpation Cardiac: S1-S2 normal, regular rate and rhythm, no murmurs rubs or gallops Respiratory: Lungs clear to auscultation bilateral Abdomen: Soft, nondistended, normal bowel sounds, nontender to palpation diffusely Extremities: Warm, dry, no cyanosis, clubbing, or edema Skin: No rashes Neuro: Alert and oriented x3, nonfocal exam, grossly intact, normal gait Psych: Normal mood and affect <Nicole Church - Last Filed: 01/07/17 21:31> - General History Source: Patient Exam Limitations: No Limitations - History of Present Illness Initial Comments: 01/07/17 22:55 A portion of this note was documented by scribe services under my direction. I have reviewed the details of the note, within reason, and agree with the documentation. The case summary and management plan written by me. 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 Patient was started on some doxycycline for a superficial staph infection and said that that precipitated the symptoms. Patient was given IV hydration, Ativan and Zofran with improvement and resolution of her symptoms. Patient discharged home and will follow-up with her primary care doctor as needed. <Arleth Zapata Shahzad - Last Filed: 01/07/17 22:57> - General Chief Complaint: Pain, Acute Stated Complaint: I AM DEHYDRATED Time Seen by Provider: 01/07/17 20:47 Past History <Nicole Church - Last Filed: 01/07/17 21:31> - Past Medical History Anemia: No Asthma: Yes Cancer: No Cardiac Disorders: No CVA: No COPD: No CHF: No Dementia: No Diabetes: No GI Disorders: Yes Disorders: No HTN: No Hypercholesterolemia: No Liver Disease: No Psychiatric Problems: Yes Seizures: No Thyroid Disease: No - Surgical History Abdominal Surgery: No Appendectomy: No Cardiac Surgery: No Cholecystectomy: No Lung Surgery: No Neurologic Surgery: No Orthopedic Surgery: No - Psycho/Social/Smoking Cessation Hx Anxiety: Yes Suicidal Ideation: No Smoking History: Never smoked Have you smoked in the past 12 months: No Information on smoking cessation initiated: No Hx Alcohol Use: No Drug/Substance Use Hx: No Substance Use Type: None Hx Substance Use Treatment: No <Arleth Zapata I - Last Filed: 01/07/17 22:57> - Past Medical History Allergies/Adverse Reactions: Allergies Allergy/AdvReac Type Severity Reaction Status Date / Time cefaclor [From Ceclor] Allergy Intermediate Rash Verified 09/09/16 08:17 ciprofloxacin [From Cipro] Allergy Rash Verified 09/09/16 08:17 nitrofurantoin Allergy Verified 09/09/16 08:17 [From Macrobid] nitrofurantoin Allergy Verified 09/09/16 08:17 macrocrystalline [From Macrobid] nut - unspecified [nut] Allergy Verified 09/09/16 08:17 Penicillins Allergy Rash Verified 09/09/16 08:17 soy Allergy Verified 09/09/16 08:17 Sulfa (Sulfonamide Allergy Rash Verified 09/09/16 08:17 Antibiotics) [Sulfa(Sulfonamide Antibiotics)] RED MEAT Allergy Uncoded 08/18/15 12:10 Home Medications: Ambulatory Orders Duloxetine HCl [Cymbalta -] 60 mg PO BID #30 08/09/15 Iron Ag/C/B12/Ca/Suc.acid/Stom [Multigen Caplet] 1 each PO DAILY tablet Prednisone 10 mg PO ASDIR #90 08/09/15 Amitriptyline HCl [Elavil -] 20 mg PO HS 02/11/16 Apremilast [Otezla] 30 mg PO BID 02/11/16 Desloratadine [Clarinex] 5 mg PO TID 02/11/16 Dextroamphetamine/Amphetamine [Adderall 5 mg Tablet] 5 mg PO BID 02/11/16 Esomeprazole Magnesium [Nexium 24Hr] 40 mg PO BID 02/11/16 Levocarnitine 5 tab PO Q4HWA 02/11/16 Montelukast Na [Singulair -] 10 mg PO HS 02/11/16 Ubidecarenone [Co Q-10] 100 mg PO DAILY 02/11/16 l-Norgest/E.estradiol-E.estrad [Seasonique 0.15-0.03-0.01 Tab] 1 each PO DAILY 02/11/16 Alpha Lipoic Acid DAILY 09/09/16 Lorazepam [Ativan] 1 mg PO TID 09/09/16 Metoprolol Tartrate 25 mg PO BID 09/09/16 Ondansetron [Zofran Odt -] 4 mg SL TID PRN #21 od.tablet 09/09/16 Metronidazole [Flagyl -] 500 mg PO Q6H #28 tablet 11/03/16 *Physical Exam - Vital Signs Last Vital Signs Temp Pulse Resp BP Pulse Ox 98.4 F 80 18 118/79 99 01/07/17 20:47 01/07/17 20:47 01/07/17 20:47 01/07/17 20:47 01/07/17 20:47 <Nicole Church - Last Filed: 01/07/17 21:31> - Vital Signs Last Vital Signs Temp Pulse Resp BP Pulse Ox 98.4 F 80 18 118/79 99 01/07/17 20:47 01/07/17 20:47 01/07/17 20:47 01/07/17 20:47 01/07/17 20:47 <Arleth Zapata I - Last Filed: 01/07/17 22:57> ED Treatment Course - LABORATORY CBC & Chemistry Diagram: 01/07/17 21:40 01/07/17 21:40 <Arleth Zapata I - Last Filed: 01/07/17 22:57> *DC/Admit/Observation/Transfer - Attestations Scribe Attestion: 01/07/17 21:31 Documentation prepared by Nicole Church, acting as quality engineer medical device for Arleth Zapata MD. <Nicole Church - Last Filed: 01/07/17 21:31> - Discharge Dispostion Admit: No <Arleth Zapata I - Last Filed: 01/07/17 22:57> Diagnosis at time of Disposition: Dehydration - Discharge Dispostion Disposition: HOME Condition at time of disposition: Stable - Patient Instructions Additional Instructions: Return to the emergency department immediately with ANY new, persistent or worsening symptoms. Continue any medications as previously prescribed by your physician. You should follow up with your primary doctor as soon as possible regarding today's emergency department visit. . Please make sure your doctor reviews the results of your emergency evaluation. Thank you for coming to the Emergency Department today for your care. It was a pleasure to see you today. Please note that your evaluation is INCOMPLETE until you follow-up with your doctor.
[2017-01-07] MEDS ORDERED: SODIUM CHLORIDE 1,000 ML IV ONE (21:26)
[2017-01-07] MEDS ORDERED: ONDANSETRON 4 MG/2 ML VIAL IVPUSH ONE (21:26)
[2017-01-07] MEDS ORDERED: LORAZEPAM CARPU-JECT 2 MG/ML DISP.SYRIN IVPUSH ONE (21:27)
[2017-01-07] MEDS ORDERED: LORAZEPAM CARPU-JECT 2 MG/ML DISP.SYRIN ONE (21:43)
[2017-01-07] MEDS ORDERED: ONDANSETRON 4 MG/2 ML VIAL ONE (21:43)
[2017-01-07 21:59] LABS: BASOPHIL 2.7 % (0-2.0); EOSINOPHIL 0.7 % (0-4.5); MCH 30.6 pg (25.7-33.7); MCHC 34.4 g/dl (32.0-36.0); MEAN CELL VOLUME 88.8 fl (80-96); NEUTROPHILS 66.8 % (42.8-82.8); PLATELET COUNT 397 K/MM3 (134-434); RDW 11.9 % (11.6-15.6)
[2017-01-07 22:09] LABS: ALBUMIN 4.1 g/dl (3.5-5.0); ALK PHOS 48 U/L (32-92); ANION GAP 8 (8-16); CALCIUM 9.3 mg/dl (8.4-10.2); CO2 24 mmol/L (22-28); CREATININE 0.6 mg/dl (0.6-1.3); GLUCOSE,RANDOM 114 mg/dl (74-106); SGOT/AST 21 U/L (10-42); SGPT/ALT 12 U/L (10-40); TOT PROT 6.7 g/dl (6.4-8.3)
[2017-01-07 22:25] LABS: BILIRUBIN,TOTAL < 0.3 mg/dl (0.2-1.0)
== END 2017-01-07 23:01 | disposition home or self-care (01) ==
LOC: FER 20:38
PROC: 3E033NZ Introduction of Analgesics, Hypnotics, Sedatives into Peripheral Vein, Percutaneous Approach (ICD-10-PCS; principal; 2017-01-07)
PROC: 3E033GC Introduction of Other Therapeutic Substance into Peripheral Vein, Percutaneous Approach (ICD-10-PCS; 2017-01-07)
PROC: 3E0337Z Introduction of Electrolytic and Water Balance Substance into Peripheral Vein, Percutaneous Approach (ICD-10-PCS; 2017-01-07)
DX: E86.0 Dehydration (principal); Q79.6 Ehlers-Danlos syndromes; J45.909 Unspecified asthma, uncomplicated; F99 Mental disorder, not otherwise specified
CPT/HCPCS: 36415; 80053; 85025; 99281-25

== ENCOUNTER 2018-07-01 03:36 | Emergency (ER) | payer BC ==
[2018-07-01 03:44] VITALS: BP 102/74; PULSE 78; TEMP 97.6; BMI 25.4
--- NOTE | 2018-07-01 03:45 | PDOC ---
History of Present Illness - General Chief Complaint: Pain, Acute Stated Complaint: PRESSURE, PAIN BEHIND RIGHT EYE Time Seen by Provider: 07/01/18 03:44 History Source: Patient Exam Limitations: No Limitations - History of Present Illness Initial Comments: 07/01/18 03:51 This is a 27-year-old female is a frequent visitor to this emergency department. Patient comes in with her mother for evaluation of a migraine headache. Patient said headache is right-sided behind her right eye and associated with some nausea and photophobia. Patient has had similar headaches in the past. Patient otherwise denies any fevers or chills. Neck stiffness or any other complaints. Allergies: None Past Medical History: Autoimmune disorder Social history: Lives with family. No smoking. No alcohol. No illicit drugs. Surgical history: None General: No fevers or chills, no weakness, no weight loss HEENT: No change in vision. No sore throat,. No ear pain CardioVascular: no chest discomfort. No shortness of breath Respiratory:No cough, or wheezing. Gastrointestinal: no nausea, vomiting, diarrhea or constipation, No rectal bleeding Genitourinary: No dysuria, hematuria, or frequency Musculoskeletal: No joint or muscle pain or swelling Neurologic: + headache, no vertigo, dizziness or loss of consciousness Psychiatric: nor depression Skin: No rashes or easy bruising Endocrine: no increased thirst or abnormal weight change Allergic: no skin or latex allergy All other systems reviewed and normal Exam: General: Well-nourished well-developed individual, no acute distress HEENT: Throat: Normal, tonsils normal, no erythema or exudate Neck: Supple, no meningeal signs, no lymphadenopathy Eyes::Pupils equal reactive and round, extraocular motion intact Chest: Nontender to palpation Abdomen: Soft, nondistended, normal bowel sounds, there is no tenderness on palpation diffusely Extremities: Warm, dry, no cyanosis, clubbing, or edema Skin: No rashes Neuro: Alert and oriented x3, CN II - XII intact, nonfocal exam with normal strength, normal sensation, normal reflexes, normal gait, Psych: Normal mood and affect 07/01/18 03:52 Past History - Past Medical History Allergies/Adverse Reactions: Allergies Allergy/AdvReac Type Severity Reaction Status Date / Time cefaclor [From Ceclor] Allergy Intermediate Rash Verified 07/01/18 03:47 ciprofloxacin [From Cipro] Allergy Rash Verified 07/01/18 03:47 nitrofurantoin Allergy Verified 07/01/18 03:47 [From Macrobid] nitrofurantoin Allergy Verified 07/01/18 03:47 macrocrystalline [From Macrobid] nut - unspecified [nut] Allergy Verified 07/01/18 03:47 Penicillins Allergy Rash Verified 07/01/18 03:47 soy Allergy Verified 07/01/18 03:47 Sulfa (Sulfonamide Allergy Rash Verified 07/01/18 03:47 Antibiotics) [Sulfa(Sulfonamide Antibiotics)] RED MEAT Allergy Uncoded 08/18/15 12:10 Home Medications: Ambulatory Orders Duloxetine HCl [Cymbalta -] 60 mg PO BID #30 08/09/15 Iron/C/B12/Calciu/Stomach Conc [Multigen Caplet] 1 each PO DAILY tablet Prednisone 10 mg PO ASDIR #90 08/09/15 Amitriptyline HCl [Elavil -] 20 mg PO HS 02/11/16 Apremilast [Otezla] 30 mg PO BID 02/11/16 Desloratadine [Clarinex] 5 mg PO TID 02/11/16 Dextroamphetamine/Amphetamine [Adderall 5 mg Tablet] 5 mg PO BID 02/11/16 Esomeprazole Magnesium [Nexium 24Hr] 40 mg PO BID 02/11/16 Levocarnitine 5 tab PO Q4HWA 02/11/16 Montelukast Na [Singulair -] 10 mg PO HS 02/11/16 Ubidecarenone [Co Q-10] 100 mg PO DAILY 02/11/16 l-Norgest/E.estradiol-E.estrad [Seasonique 0.15-0.03-0.01 Tab] 1 each PO DAILY 02/11/16 Alpha Lipoic Acid DAILY 09/09/16 Lorazepam [Ativan] 1 mg PO TID 09/09/16 Metoprolol Tartrate 25 mg PO BID 09/09/16 Ondansetron [Zofran Odt -] 4 mg SL TID PRN #21 od.tablet 09/09/16 metroNIDAZOLE [Flagyl -] 500 mg PO Q6H #28 tablet 11/03/16 Anemia: No Asthma: Yes Cancer: No Cardiac Disorders: No CVA: No COPD: No CHF: No Dementia: No Diabetes: No GI Disorders: Yes Disorders: No HTN: No Hypercholesterolemia: No Liver Disease: No Psychiatric Problems: Yes Seizures: No Thyroid Disease: No Other medical history: POTS - Surgical History Abdominal Surgery: No Appendectomy: No Cardiac Surgery: No Cholecystectomy: No Lung Surgery: No Neurologic Surgery: No Orthopedic Surgery: No - Suicide/Smoking/Psychosocial Hx Smoking History: Never smoked Have you smoked in the past 12 months: No Information on smoking cessation initiated: No Hx Alcohol Use: No Drug/Substance Use Hx: No Substance Use Type: None Hx Substance Use Treatment: No *Physical Exam - Vital Signs Last Vital Signs Temp Pulse Resp BP Pulse Ox 97.6 F 78 16 102/74 100 07/01/18 03:40 07/01/18 03:40 07/01/18 03:40 07/01/18 03:40 07/01/18 03:40 Moderate Sedation - Procedure Monitoring Vital Signs: Procedure Monitoring Vital Signs Temperature 97.6 F 07/01/18 03:40 Pulse Rate 78 07/01/18 03:40 Respiratory Rate 16 07/01/18 03:40 Blood Pressure 102/74 07/01/18 03:40 O2 Sat by Pulse Oximetry (%) 100 07/01/18 03:40 *DC/Admit/Observation/Transfer Diagnosis at time of Disposition: Migraine Qualifiers: Migraine type: unspecified Status migrainosus presence: without status migrainosus Intractability: not intractable Qualified Code(s): G43.909 - Migraine, unspecified, not intractable, without status migrainosus - Discharge Dispostion Disposition: HOME Condition at time of disposition: Stable Decision to Admit order: No - Referrals - Patient Instructions Additional Instructions: Return to the emergency department immediately with ANY new, persistent or worsening symptoms. Continue any medications as previously prescribed by your physician. You should follow up with your primary doctor as soon as possible regarding today's emergency department visit. . Please make sure your doctor reviews the results of your emergency evaluation. Thank you for coming to the Emergency Department today for your care. It was a pleasure to see you today. Please note that your evaluation is INCOMPLETE until you follow-up with your doctor. - Post Discharge Activity
[2018-07-01] MEDS ORDERED: KETOROLAC TROMETHAMINE 30 MG/1 ML VIAL IVPUSH ONE (03:48)
[2018-07-01] MEDS ORDERED: METOCLOPRAMIDE HCL INJECTION 10 MG/2 ML VIAL IVPUSH ONE (03:49)
[2018-07-01] MEDS ORDERED: SODIUM CHLORIDE 1,000 ML IV ONE (03:49)
[2018-07-01] MEDS ORDERED: CYCLOBENZAPRINE HCL 5 MG TABLET PO STA (03:54)
[2018-07-01] MEDS ORDERED: METOCLOPRAMIDE HCL INJECTION 10 MG/2 ML VIAL ONE (03:58)
[2018-07-01] MEDS ORDERED: KETOROLAC TROMETHAMINE 30 MG/1 ML VIAL ONE (03:58)
[2018-07-01] MEDS ORDERED: CYCLOBENZAPRINE HCL 10 MG TABLET (FP) ONE (04:38)
== END 2018-07-01 04:51 | disposition home or self-care (01) ==
LOC: FER 03:36
PROC: 3E0333Z Introduction of Anti-inflammatory into Peripheral Vein, Percutaneous Approach (ICD-10-PCS; principal; 2018-07-01)
PROC: 3E033GC Introduction of Other Therapeutic Substance into Peripheral Vein, Percutaneous Approach (ICD-10-PCS; 2018-07-01)
PROC: 3E0337Z Introduction of Electrolytic and Water Balance Substance into Peripheral Vein, Percutaneous Approach (ICD-10-PCS; 2018-07-01)
DX: G43.909 Migraine, unspecified, not intractable, without status migrainosus (principal)
CPT/HCPCS: 99281-25; J7030

== ENCOUNTER 2020-08-23 05:54 | Emergency (ER) | payer BC ==
[2020-08-23 06:16] VITALS: BP 116/74; PULSE 94; TEMP 98.6; BMI 29.2
[2020-08-23] MEDS ORDERED: LORazepam 2 MG/ML SDV VIAL ONE (06:19)
[2020-08-23] MEDS ORDERED: ONDANSETRON 4 MG/2 ML VIAL ONE (06:19)
[2020-08-23] MEDS ORDERED: LORazepam 2 MG/ML SDV VIAL IVPUSH ONE (06:22)
[2020-08-23] MEDS ORDERED: SODIUM CHLORIDE 1,000 ML IV STA (06:22)
[2020-08-23] MEDS ORDERED: ONDANSETRON 4 MG/2 ML VIAL IVPUSH ONE (06:23)
[2020-08-23] MEDS ORDERED: CYCLOBENZAPRINE HCL 5 MG TABLET PO ONE (09:03)
[2020-08-23] MEDS ORDERED: CYCLOBENZAPRINE HCL 10 MG TABLET (FP) ONE (09:05)
== END 2020-08-23 09:29 | disposition home or self-care (01) ==
LOC: FER 05:54
PROC: 3E033NZ Introduction of Analgesics, Hypnotics, Sedatives into Peripheral Vein, Percutaneous Approach (ICD-10-PCS; principal; 2020-08-23)
PROC: 3E033GC Introduction of Other Therapeutic Substance into Peripheral Vein, Percutaneous Approach (ICD-10-PCS; 2020-08-23)
PROC: 3E0337Z Introduction of Electrolytic and Water Balance Substance into Peripheral Vein, Percutaneous Approach (ICD-10-PCS; 2020-08-23)
DX: R11.2 Nausea with vomiting, unspecified (principal); E86.0 Dehydration
CPT/HCPCS: 99284-25

== ENCOUNTER 2022-03-22 01:27 | Emergency (ER) | payer BC ==
[2022-03-22 01:38] VITALS: BP 117/74; PULSE 95; RESP 17; TEMP 98; BMI 29.2
[2022-03-22] MEDS ORDERED: KETOROLAC TROMETHAMINE 30 MG/1 ML VIAL IVPUSH ONE (01:57)
[2022-03-22] MEDS ORDERED: ONDANSETRON 4 MG/2 ML VIAL IVPB ONE (01:57)
[2022-03-22] MEDS ORDERED: KETOROLAC TROMETHAMINE 30 MG/1 ML VIAL ONE (01:59)
[2022-03-22] MEDS ORDERED: ONDANSETRON 4 MG/2 ML VIAL ONE (01:59)
[2022-03-22] MEDS ORDERED: SODIUM CHLORIDE 1,000 ML IV SCH (02:00)
[2022-03-22] MEDS ORDERED: METOCLOPRAMIDE HCL INJECTION 10 MG/2 ML VIAL IVPUSH ONE (02:35)
== END 2022-03-22 04:05 | disposition home or self-care (01) ==
LOC: SUPCPDRO 01:27 → FER 01:27
PROC: 3E0333Z Introduction of Anti-inflammatory into Peripheral Vein, Percutaneous Approach (ICD-10-PCS; principal; 2022-03-22)
PROC: 3E033GC Introduction of Other Therapeutic Substance into Peripheral Vein, Percutaneous Approach (ICD-10-PCS; 2022-03-22)
PROC: 3E033GC Introduction of Other Therapeutic Substance into Peripheral Vein, Percutaneous Approach (ICD-10-PCS; 2022-03-22)
DX: G43.909 Migraine, unspecified, not intractable, without status migrainosus (principal)
CPT/HCPCS: 99284-25

== ENCOUNTER 2023-03-17 12:16 | Emergency (ER) | payer BC ==
[2023-03-17 12:29] VITALS: BP 112/72; PULSE 96; RESP 18; TEMP 99; BMI 31.1
[2023-03-17] MEDS ORDERED: METOCLOPRAMIDE HCL INJECTION 10 MG/2 ML VIAL IVPB ONE (12:44)
[2023-03-17] MEDS ORDERED: SODIUM CHLORIDE 1,000 ML IV STA ×2 (12:44→13:32)
[2023-03-17 12:55] LABS: HEMATOCRIT 40.1 % (32.4-45.2); HEMOGLOBIN 12.8 G/dL (10.7-15.3); MCH 26.5 pg (25.7-33.7); MCHC 31.9 g/dl (32.0-36.0); MEAN PLT VOLUME 7.2 fl (7.5-11.1); PLATELET COUNT 399.4 10^3/uL (134-434); RBC 4.83 10^6/uL (3.60-5.2); RDW 15.7 % (11.6-15.6); WHITE BLOOD COUNT 8.5 10^3/uL (4.0-10.8)
[2023-03-17] MEDS ORDERED: METOCLOPRAMIDE HCL INJECTION 10 MG/2 ML VIAL ONE (13:05)
[2023-03-17 13:19] LABS: ALBUMIN 4.4 g/dl (3.4-5.0); BILIRUBIN,TOTAL 0.4 mg/dl (0.2-1); BLOOD UREA NITROGEN 12.9 mg/dl (7-18); CALCIUM 9.3 mg/dl (8.5-10.1); CREATININE 0.7 mg/dl (0.6-1.3); POTASSIUM 4.3 mmol/L (3.5-5.1); SGOT/AST 22.2 U/L (15-37); TOT PROT 7.1 g/dl (6.4-8.2)
[2023-03-17] MEDS ORDERED: ONDANSETRON *ODT* 4 MG TABLET SL ONE (14:05)
[2023-03-17] MEDS ORDERED: ONDANSETRON *ODT* 4 MG TABLET ONE (14:06)
[2023-03-17] MEDS ORDERED: ONDANSETRON 4 MG/2 ML VIAL IVPUSH ONE (14:51)
[2023-03-17] MEDS ORDERED: diazePAM CARPU-JECT 10 MG/2 ML DISP.SYRIN IVPUSH ONE (15:14)
[2023-03-17] MEDS ORDERED: ONDANSETRON 4 MG/2 ML VIAL ONE (15:18)
[2023-03-17] MEDS ORDERED: diazePAM CARPU-JECT 10 MG/2 ML DISP.SYRIN ONE (15:18)
== END 2023-03-17 16:17 | disposition home or self-care (01) ==
LOC: FER 12:16
PROC: 3E033GC Introduction of Other Therapeutic Substance into Peripheral Vein, Percutaneous Approach (ICD-10-PCS; principal; 2023-03-17)
PROC: 3E033GC Introduction of Other Therapeutic Substance into Peripheral Vein, Percutaneous Approach (ICD-10-PCS; 2023-03-17)
PROC: 3E033GC Introduction of Other Therapeutic Substance into Peripheral Vein, Percutaneous Approach (ICD-10-PCS; 2023-03-17)
PROC: 3E033GC Introduction of Other Therapeutic Substance into Peripheral Vein, Percutaneous Approach (ICD-10-PCS; 2023-03-17)
PROC: 3E0337Z Introduction of Electrolytic and Water Balance Substance into Peripheral Vein, Percutaneous Approach (ICD-10-PCS; 2023-03-17)
PROC: 3E0337Z Introduction of Electrolytic and Water Balance Substance into Peripheral Vein, Percutaneous Approach (ICD-10-PCS; 2023-03-17)
DX: R11.2 Nausea with vomiting, unspecified (principal)
CPT/HCPCS: 36415; 80053; 83690; 85027; 99284-25; Q0162